=== PATIENT | male | born 1970 | race Caucasian/White ===

== ENCOUNTER 2017-11-15 21:11 | Emergency (ER) | payer SELFPAY ==
[2017-11-15] MEDS ORDERED: IPRATROPIUM/ALBUTEROL 3 ML NEB INH ONE (21:23)
[2017-11-15] MEDS ORDERED: methylPREDNISolone SUCCINATE 125 MG/2 ML VIAL IVP STA (21:24)
[2017-11-15] MEDS ORDERED: TERBUTALINE 1 MG/ML VIAL SUBQ STA (21:24)
--- NOTE | 2017-11-15 21:25 | ED Physician Documentation ---
PD HPI DYSPNEA - Stated complaint Stated Complaint: CHEST TIGHTNESS/SHIVERING - Chief complaint Chief Complaint: Cardiac - History obtained from History obtained from: Patient, Friend - History of Present Illness Timing - onset: Today Timing - onset during: Rest Timing - details: Abrupt onset, Still present Improved by: O2 Associated symptoms: Fever, Wheezing Similar symptoms before: Diagnosis Recently seen: Not recently seen - Additional information Additional information: Patient is a 47 year old male with a history of emphysema who is presenting to the emergency department for shortness of breath. according to patient and friend patient was sitting on the couch when he developed severe shortness of breath. Patient states that he has a history of emphysema but he does not currently have an inhaler. Patient states that he has been coughing, but her reports that he always has a cough at baseline. Review of Systems Constitutional: reports: Fever Eyes: reports: Reviewed and negative Ears: reports: Reviewed and negative Nose: reports: Reviewed and negative Throat: reports: Reviewed and negative Cardiac: reports: Chest pain / pressure Respiratory: reports: Dyspnea, Cough GI: denies: Nausea, Vomiting : reports: Reviewed and negative Skin: reports: Reviewed and negative Musculoskeletal: reports: Reviewed and negative Neurologic: denies: Generalized weakness, Focal weakness, Numbness, Headache Immunocompromised: denies: Immunocompromised PD PAST MEDICAL HISTORY - Present Medications Home Medications: Ambulatory Orders Medication Instructions Recorded Confirmed Albuterol Sulf [Ventolin Hfa 1 - 2 puffs INH Q4HR PRN #1 inhaler 11/15/17 Inhaler] Azithromycin [Zithromax] 250 mg PO DAILY #4 tablet 11/15/17 - Allergies Allergies/Adverse Reactions: Allergies Allergy/AdvReac Type Severity Reaction Status Date / Time Penicillins Allergy Severe Edema Verified 11/15/17 21:28 PD ED PE NORMAL - General General: Alert and oriented X 3 - HEENT HEENT: Atraumatic - Neck Neck: Supple, no meningeal sign, No JVD - Cardiac Cardiac: No murmur - Abdomen Abdomen: Soft, Non distended - Derm Derm: Normal color, No rash - Extremities Extremities: No deformity, No edema, No calf tenderness / cord - Neuro Neuro: Alert and oriented X 3, No motor deficit, No sensory deficit, Normal speech - Psych Psych: Normal mood PD ED PE EXPANDED - HEENT HEENT: Dry mucous membranes - Respiratory Respiratory: Accessory mm use, Rhonchi, Right upper lobe, Left upper lobe Results - Vitals Vitals: Vital Signs - 24 hr 11/15/17 11/15/17 11/15/17 21:15 21:40 22:31 Temperature 38.3 C H 38 C H 37.1 C Heart Rate 102 H 95 94 Respiratory 24 15 16 Rate Blood Pressure 137/84 H 131/83 H 130/60 O2 Saturation 97 94 94 11/15/17 23:30 Temperature 36.5 C Heart Rate 87 Respiratory 17 Rate Blood Pressure 128/67 O2 Saturation 97 Oxygen O2 Source Room air - EKG (time done) 4 Rate: Rate (enter#) (92) Rhythm: NSR Dell: Normal Intervals: Normal GA QRS: Normal Ischemia: Normal ST segments Compare to prior EKG: Old EKG unavailable - Labs Labs: Laboratory Tests 11/15/17 11/15/17 11/15/17 21:25 21:25 21:25 WBC 12.9 H RBC 5.05 Hgb 15.4 Hct 45.4 MCV 89.9 MCH 30.4 MCHC 33.8 RDW 12.6 Plt Count 213 MPV 8.0 Neut # 10.9 H Lymph # 1.4 L Fisher # 0.4 Eos # 0.1 Baso # 0.1 Absolute Nucleated RBC 0.00 Nucleated RBC % 0.0 D-Dimer Sodium 134 L Potassium 3.5 Chloride 102 Carbon Dioxide 23 Anion Gap 9.0 BUN 12 Creatinine 0.9 Estimated GFR (MDRD) 91 Glucose 108 H Calcium 9.2 Total Bilirubin 0.4 AST 23 ALT 19 Alkaline Phosphatase 81 Troponin I < 0.04 B-Natriuretic Peptide Total Protein 7.7 Albumin 4.5 Globulin 3.2 Albumin/Globulin Ratio 1.4 Lipase 128 H 11/15/17 11/15/17 21:25 21:25 WBC RBC Hgb Hct MCV MCH MCHC RDW Plt Count MPV Neut # Lymph # Fisher # Eos # Baso # Absolute Nucleated RBC Nucleated RBC % D-Dimer 283.8 H Sodium Potassium Chloride Carbon Dioxide Anion Gap BUN Creatinine Estimated GFR (MDRD) Glucose Calcium Total Bilirubin AST ALT Alkaline Phosphatase Troponin I B-Natriuretic Peptide 13 Total Protein Albumin Globulin Albumin/Globulin Ratio Lipase - Rads (name of study) chest x-ray Radiology: Final report received (bilateral infiltrates) PD MEDICAL DECISION MAKING - ED course Complexity details: reviewed old records, reviewed results, re-evaluated patient , considered differential, d/w patient, d/w family ED course: Patient was seen and examined at bedside. Patient was immediately treated with three duoneb treatments. IV access was gained and labs were drawn. ekg was performed and showed no acute ischemic changes. Patient was treated with solumedrol and terbutaline. Patient responded well to the breathing treatments. patient's chest x-ray showed pnuemonia and patient was treated with azithromycin. Upon discharge patient was saturating at 100% on room air. patient was able to tolerate PO and was appropriate for outpatient antibiotics. Departure - Departure Disposition: Home, Self Care Clinical Impression: Pneumonia Condition: Good Instructions: ED Pneumonia Adult Follow-Up: primary,care provider [Other] - Within 3 Days Prescriptions: Albuterol Sulf [Ventolin Hfa Inhaler] 1 - 2 puffs INH Q4HR PRN #1 inhaler PRN Reason: Shortness Of Air/Wheezing Azithromycin [Zithromax] 250 mg PO DAILY #4 tablet Comments: Your symptoms today are being caused by pneumonia. You had your first dose of antibiotics tonight and you will need to be on them for the next 4 days. you can take the albuterol as needed for wheezing or shortness of breath. You should follow up with your doctor for further evaluation and care. You may return to the emergency department at any time for new, worsening or uncontrollable symptoms. Discharge Date/Time: 11/15/17 23:30
[2017-11-15 21:33] LABS: BASOPHILS # (AUTO) 0.1 10^3/uL (0.0-0.1); BASOPHILS % (AUTO) 0.7 %; EOSINOPHILS # (AUTO) 0.1 10^3/uL (0.0-0.7); EOSINOPHILS % (AUTO) 0.5 %; HGB - HEMOGLOBIN 15.4 g/dL (14.0-18.0); LYMPHOCYTES # (AUTO) 1.4 10^3/uL (1.5-3.5); LYMPHOCYTES % (AUTO) 10.7 %; MEAN CORPUSCULAR HEMOGLOBIN 30.4 pg (27.0-31.0); MEAN CORPUSCULAR HGB CONC 33.8 g/dL (32.0-36.0); MEAN CORPUSCULAR VOLUME 89.9 fL (80.0-94.0); MONOCYTES # (AUTO) 0.4 10^3/uL (0.0-1.0); MONOCYTES % (AUTO) 3.3 %; NEUTROPHILS # (AUTO) 10.9 10^3/uL (1.5-6.6); NEUTROPHILS % (AUTO) 84.8 %; PLT - PLATELET COUNT 213 10^3/uL (130-450); RED BLOOD COUNT 5.05 10^6/uL (4.70-6.10); RED CELL DISTRIBUTION WIDTH 12.6 % (12.0-15.0); WHITE BLOOD COUNT 12.9 x10^3/uL (4.8-10.8)
[2017-11-15 21:46] LABS: ALBUMIN 4.5 g/dL (3.2-5.5); ALBUMIN/GLOBULIN RATIO 1.4 (1.0-2.2); BILIRUBIN,TOTAL 0.4 mg/dL (0.2-1.0); CALCIUM 9.2 mg/dL (8.5-10.3); CREATININE 0.9 mg/dL (0.6-1.2); TOTAL PROTEIN 7.7 g/dL (6.7-8.2)
--- NOTE | 2017-11-15 22:17 | XRAY Report ---
EXAM: CHEST RADIOGRAPHY EXAM DATE: 11/15/2017 10:06 PM. CLINICAL HISTORY: Fever and shortness of breath. COMPARISON: None. TECHNIQUE: 2 views. FINDINGS: Lungs/Pleura: Patchy opacities in the right upper lobe, otherwise no focal opacities evident. No pleu ral effusion. No pneumothorax. Normal volumes. Mediastinum: Heart and mediastinal contours are unremarkable. Other: No compression fractures. IMPRESSION: Right upper lobe infiltrates. [facility] Referring Provider Line: [phone] SITE ID: [id number]
[2017-11-15] MEDS ORDERED: AZITHROMYCIN 250 MG TABLET PO STA (22:33)
[2017-11-16 00:07] VITALS: BP 128/67
== END 2017-11-15 23:30 | disposition home or self-care (01) ==
LOC: ED 21:11
DX: J18.9 Pneumonia, unspecified organism (principal)
CPT/HCPCS: 36415; 71046; 80053; 83690; 83880; 84484; 85025; 85379; 93005; 96372; 96374; 99284; A9270; J7620